=== PATIENT | male | born 1955 | race Caucasian/White ===

== ENCOUNTER 2017-05-04 09:38 | Emergency (ER) | payer SELFPAY ==
--- NOTE | 2017-05-04 09:48 | ED.PDOC ---
History of Present Illness - General Chief Complaint: Abdominal Pain Stated Complaint: right upper quadrant Time Seen by Provider: 05/04/17 09:45 Information Source: patient, RN notes reviewed, Vital Signs reviewed Exam Limitations: no limitations - History of Present Illness Initial Comments: Hector Brady 61 y/o male stated he started having sharp /stabbing right upper quadrant pain which comes and goes radiating to right side of mid back. Abdominal Pain Onset Location: RUQ Pain Radiation: back Quality: intermittent, sharpness Timing/Duration: 7-24 hours Improving Factors: other - ate barbecue and sausage last night Associated Symptoms: nausea/vomiting Review of Systems - Review of Systems Constitutional: States: no symptoms reported EENTM: States: no symptoms reported Respiratory: States: no symptoms reported Cardiology: States: no symptoms reported Gastrointestinal/Abdominal: States: see HPI Genitourinary: States: no symptoms reported Skin: States: no symptoms reported Neurological: States: no symptoms reported Endocrine: States: no symptoms reported Hematologic/Lymphatic: States: no symptoms reported Past Medical History (General) - Patient Medical History Hx Seizures: No Hx Stroke: No Hx Asthma: No Hx of COPD: No Hx Cardiac Disorders: No Hx Congestive Heart Failure: No Hx Pacemaker: No Hx Hypertension: No Hx Diabetes: No Hx MRSA: No Hx Other PMH: Yes - nephrolithiasis Surgical History: appendectomy - Social History Hx Alcohol Use: No Hx Substance Use: No Hx Physical Abuse: No Hx Emotional Abuse: No - Activities of Daily Living Patient Lives Alone: No - family Family Medical History - Family History Mother Living Status: Cause of : Colon Cancer Hx Family Hypertension: No Hx Family Stroke: No Hx Family Cancer: Yes - colon Physical Exam - Physical Exam General Appearance: Alert, Comfortable, No apparent distress Eyes, Ears, Nose, Throat Exam: PERRL/EOMI, normal ENT inspection, TMs normal, pharynx normal Neck: non-tender, full range of motion, supple, normal inspection Respiratory: chest non-tender, lungs clear, normal breath sounds, no respiratory distress Cardiovascular/Chest: normal peripheral pulses, regular rate, rhythm, no edema, no murmur Peripheral Pulses: No deficit Gastrointestinal/Abdominal: normal bowel sounds, soft, no organomegaly, no pulsatile mass, tenderness - right upper quadrant no peritoneal signs Progress - Progress Progress: 05/04/17 10:38 Vital Signs - 8 hr 05/04/17 09:47 Temperature 99.9 F H Pulse Rate [ 104 H Left Radial] Respiratory 16 Rate Blood Pressure 185/107 [Left Arm] O2 Sat by Pulse 95 Oximetry - Results/Orders Results/Orders: 05/04/17 09:50 Sodium Chloride 0.9% 1000ML [Ns 1000 ml] 1,000 ml IVS ONCE 05/04/17 10:00 CBC (AUTOMATED) W/AUTO DIFF Stat DIFFERENTIAL,MANUAL BY FLAGS Stat EKG STAT 05/04/17 10:36 Abdomen/Pelvis w/Contrast [CT] Stat 05/04/17 10:37 Hold Metformin x 48Hrs [id number] Laboratory Results - last 24 hr 05/04/17 05/04/17 05/04/17 10:00 10:00 10:05 WBC 6.5 RBC 4.04 L Hgb 13.9 L Hct 40.0 L MCV 99.0 H MCH 34.4 H MCHC 34.7 RDW 15.0 H Plt Count 151 MPV 6.7 L Absolute Neuts (auto) 1.60 L Absolute Lymphs (auto) 1.90 Absolute Monos (auto) 2.80 H Absolute Eos (auto) 0.00 Absolute Basos (auto) 0.10 Neutrophils % 25.1 L Lymphocytes % 29.8 Monocytes % 43.6 H Eosinophils % 0.6 L Basophils % 0.9 Sodium 137 Potassium 3.8 Chloride 104 Carbon Dioxide 24 Anion Gap 12.8 BUN 10 Creatinine 1.02 BUN/Creatinine Ratio 9.8 L Random Glucose 136 H Serum Osmolality 274.9 L Calcium 9.4 Total Bilirubin 0.9 AST 23 ALT 27 Alkaline Phosphatase 57 Serum Total Protein 7.3 Albumin 4.2 Globulin 3.1 Albumin/Globulin Ratio 1.4 Lipase 53 H Urine Color Yellow Urine Appearance Clear Urine pH 6.5 Ur Specific [place] 1.010 Urine Protein Negative Urine Glucose (UA) Negative Urine Ketones Negative Urine Blood Negative Urine Nitrite Negative Urine Bilirubin Negative Urine Urobilinogen 0.2 Ur Leukocyte Esterase Negative Urine RBC 0-1 Urine WBC 0 Ur Epithelial Cells 0-1 Amorphous Sediment 2+ Urine Bacteria 0 Urine Mucus Small - EKG/XRAY/CT EKG: Sinus Comments: heart rate 85;q wave lead3 only XRAY: chest - no acute abnormalities /radiologist CT Ordered: Yes - abd/pelvis-no acute intrabdominal abnomalities Departure - Departure Clinical Impression: Abdominal pain Qualifiers: Abdominal location: right upper quadrant Qualified Code(s): R10.11 - Right upper quadrant pain Time of Disposition: 11:26 Disposition: Discharge to Home or Self Care Condition: Fair Diet: low fat, low cholesterol, low salt diet Referrals: Blaine Waite MD [Primary Care Provider] - 1-2 Weeks Prescriptions: Acetaminophen W/ Codeine [Tylenol w/Codeine 300-30 mg] 1 tab PO Q6HRS #14 tab Hyoscyamine Sulfate [Levsin] 0.125 mg PO Q6HRS #10 tab Home Medications: Ambulatory Orders Acetaminophen W/ Codeine [Tylenol w/Codeine 300-30 mg] 1 tab PO Q6HRS #14 tab Esomeprazole Magnesium [Nexium] 40 mg PO DAILY 05/04/17 Hyoscyamine Sulfate [Levsin] 0.125 mg PO Q6HRS #10 tab 05/04/17 Additional Instructions: Follow up with primary as per verbal instr.uction
[2017-05-04] MEDS ORDERED: ONDANSETRON INJ 4 MG/2 ML VIAL IV ONE (09:50)
[2017-05-04] MEDS ORDERED: SODIUM CHLORIDE 0.9% 1000ML 1,000 ML IVS ONE (09:50)
[2017-05-04] MEDS ORDERED: MORPHINE SULFATE INJ 10 MG/ML VIAL IV ONE (10:14)
[2017-05-04] MEDS ORDERED: PROMETHAZINE HCL INJ 25 MG/ML VIAL IM ONE (10:15)
--- NOTE | 2017-05-04 10:19 | RAD ---
PROCEDURE: XR CHEST 1 VIEW HISTORY: pain COMPARISON: December 22, 2013 TECHNIQUE: Single projection of the chest was done. FINDINGS: The lung zarate are well inflated . There are no discrete airspace infiltrates, pneumothoraces or pleural effusions. The pulmonary vascularity is normal. The cardiomediastinal silhouette is unremarkable for patient's age and sex. IMPRESSION: There is no acute pleural-parenchymal process seen in the imaged lung zarate. Location of Interpretation: [facility]iology Electronically signed by: Kirby Qureshi MD 05/04/2017 10:19 AM CDT Workstation: [id number]
--- NOTE | 2017-05-04 11:17 | CT ---
PROCEDURE: Abdomen/Pelvis w/Contrast HISTORY: Abdominal pain Indication: Same as above Comparison: None . Technique: CT of the abdomen and pelvis was done with intravenous contrast. Images were obtained from the lung base to the level of the pubic symphysis in axial plane, followed by orthogonal sagittal and coronal reconstruction. Oral contrast was not given for the study. The patient was injected with contrast intravenously, without any documented immediate adverse reactions. This exam was performed according to our departmental dose-optimization program, which includes automated exposure control, adjustment of the mA and/or KV according to the patient's size and/or use of iterative reconstruction technique. FINDINGS: Images through the lung bases do not show any focal infiltrates or pleural effusions. There is a small hiatal hernia. Note is made of multiple subcentimeter nonobstructive bilateral renal calculi. The prostate is mildly enlarged. There is large bowel diverticulosis without acute diverticulitis The gallbladder, pancreas, spleen and the bilateral adrenal glands appear unremarkable. There is fatty metamorphosis of the liver without hepatomegaly. The urinary bladder is unremarkable . The bilateral ureters and the bilateral periureteral soft tissues and fat planes are unremarkable. The small bowel appears unremarkable, without any evidence of small bowel obstruction or bowel wall thickening. There is no CT evidence of pericecal inflammatory change or ileocecal mesenteric adenitis. The appendix is not visualized The ileocecal junction appears unremarkable. The splenic and portal veins are of normal caliber, without any filling defects. There is no pathological lymphadenopathy in the retroperitoneum or in the pelvic region. There is no evidence of free fluid or free air in the abdomen or the pelvic region. There is no clinically significant abdominal aortic aneurysm. There is a small fat-containing periumbilical ventral hernia defect. The visualized lumbar spine shows multilevel mild degenerative change . The paravertebral soft tissues are unremarkable. The remainder of the pelvic structures are unremarkable. IMPRESSION: There are no acute findings in the abdomen or the pelvis. There is a small hiatal hernia. Note is made of multiple subcentimeter nonobstructive bilateral renal calculi. The prostate is mildly enlarged. There is large bowel diverticulosis without acute diverticulitis. Location of Interpretation: Teleradiology Electronically signed by: Kirby Qureshi MD 05/04/2017 11:16 AM CDT Workstation: [id number]
[2017-05-04 11:43] VITALS: BP 126/84; TEMP 98.3; O2SAT 95
== END 2017-05-04 11:43 | disposition home or self-care (01) ==
LOC: ER 09:38
DX: R10.11 Right upper quadrant pain (principal); Z87.442 Personal history of urinary calculi; Z80.8 Family history of malignant neoplasm of other organs or systems
CPT/HCPCS: 36415; 71010; 74177; 80053; 81001; 83690; 85025; 93005; J2270; J2405; J2550; J7030

== ENCOUNTER 2017-05-15 14:28 | Emergency (ER) | payer SELFPAY ==
--- NOTE | 2017-05-15 15:24 | RAD ---
EXAM DESCRIPTION: Chest,1 View CLINICAL HISTORY: 61 years, Male, recent pna shortness breath COMPARISON: May 04 FINDINGS: Slightly shallow inspiration. Central bronchial thickening. Some increased density right infrahilar zone may be developing infiltrate. Borderline heart size. IMPRESSION: Central bronchial thickening suggests bronchitis. Question early infiltrate at the right base medially. Borderline heart size. Electronically signed by: Luís Whitley MD 05/15/2017 3:21 PM CDT
--- NOTE | 2017-05-15 15:49 | US ---
EXAM DESCRIPTION: Venous, lower Extremity LT CLINICAL HISTORY: pain COMPARISON: None Available. TECHNIQUE: Two -dimensional and doppler sonographic evaluation of the deep venous system of the left lower extremity. FINDINGS: Doppler evaluation shows normal color flow and normal phasicity and augmentation of the left common femoral vein, femoral vein, popliteal vein, greater saphenous vein, peroneal, and posterior tibial vein. The left lower extremity deep veins showed normal occlusion with transducer pressure. Two-dimensional survey showed no echogenic thrombus within these veins. IMPRESSION: 1. Duplex ultrasound evaluation of the left lower extremity deep venous system showing no evidence of thrombosis or embolism. Electronically signed by: Farhat Grewal MD 05/15/2017 3:48 PM CDT Workstation: [id number]
--- NOTE | 2017-05-15 16:05 | US ---
EXAM DESCRIPTION: Venous, upper Extremity RT CLINICAL HISTORY: pain COMPARISON: Duplex ultrasound evaluation of the left lower extremity deep venous system on the same visit. TECHNIQUE: Two -dimensional and doppler sonographic evaluation of the deep venous system of the right upper extremity. FINDINGS: Doppler evaluation shows normal color flow and normal phasicity and augmentation of the right subclavian, internal jugular, axillary, basilic, brachial, radial vein and ulnar vein. The left cephalic vein was not visualized. The right upper extremity deep veins showed normal occlusion with transducer pressure. Two-dimensional survey showed no echogenic thrombus within these veins. IMPRESSION: Duplex ultrasound evaluation of the right upper extremity deep venous system showing no deep venous thromboses. . Electronically signed by: Farhat Grewal MD 05/15/2017 4:03 PM CDT Workstation: [id number]
[2017-05-15] MEDS ORDERED: KETOROLAC TROMETHAMINE INJ 30 MG/ML VIAL IV ONE (16:06)
[2017-05-15 17:17] VITALS: TEMP 98.2
--- NOTE | 2017-05-15 17:48 | ED.PDOC ---
History of Present Illness - General Chief Complaint: General Stated Complaint: right arm pain,left calf pain Time Seen by Provider: 05/15/17 14:55 Source: patient Exam Limitations: no limitations - History of Present Illness Initial Comments: the patient is a 61-year-old male presenting to the emergency room secondary to arm and leg pain starting yesterday. The patient has just gotten out of the hospital a few days ago due to a pneumonia caused by influenza, H1N1 according to the patient. the patient did have an elevated d-dimer at that visit and apparently did have a CT angiogram of the chest that was negative. I have been unable to obtain the report of that study from the outside hospital. I haven't been able to obtain some of the lab work confirming the influenza. It also confirms the elevated d-dimer at that visit. The patient also has some significant monocytosis and x-rays confirmed a pneumonia. Total white blood cell count was apparently never elevated. He did have mild elevation of his amylase and lipase. His creatinine was also mildly elevated there as well. Interestingly as well his urobilinogen on his urinalysis there was mildly elevated. The patient was release from the hospital with oral clindamycin and Levaquin to follow up with pulmonology in 4 days. I do not see any positive bacterial cultures in the paperwork that I have received. I have not received imaging. I have not received the clinician's notes. Medical records has closed for the day so I'm unlikely to see the until tomorrow. On exam the patient has local pain over the left soleus muscle. He also has focal pain over the right deltoid and the right pronator quadratus muscle. There is no weakness. There is no sensory loss. He has no neurological deficits. Timing/Duration: 24 hours Severity: moderate Improving Factors: nothing Worsening Factors: immobilization Associated Symptoms: denies symptoms Allergies/Adverse Reactions: Allergies Penicillins Allergy (Verified 12/23/13 13:30) Home Medications: Ambulatory Orders Clindamycin HCl 300 mg PO Q6H 05/15/17 levoFLOXacin [Levaquin] 500 mg PO DAILY 05/15/17 Review of Systems - Review of Systems Constitutional: States: malaise, weakness - Generalized EENTM: States: no symptoms reported Respiratory: States: cough Cardiology: States: no symptoms reported Gastrointestinal/Abdominal: States: no symptoms reported Genitourinary: States: no symptoms reported Musculoskeletal: States: see HPI Skin: States: no symptoms reported Neurological: States: no symptoms reported Endocrine: States: no symptoms reported All other Systems: No Change from Baseline Past Medical History (General) - Patient Medical History Hx Seizures: No Hx Stroke: No Hx Dementia: No Hx Asthma: No Hx of COPD: No Hx Cardiac Disorders: No Hx Congestive Heart Failure: No Hx Pacemaker: No Hx Hypertension: No Hx Thyroid Disease: No Hx Diabetes: No Hx Gastroesophageal Reflux: Yes Hx Renal Disease: No Hx Cancer: No Hx of HIV: No Hx Hepatitis C: No Hx MRSA: No Surgical History: appendectomy - Vaccination History Hx Tetanus, Diphtheria Vaccination: Yes Hx Influenza Vaccination: Yes Hx Pneumococcal Vaccination: No - Social History Hx Tobacco Use: Yes Hx Alcohol Use: No Hx Substance Use: No Hx Substance Use Treatment: No Hx Depression: No Hx Physical Abuse: No Hx Emotional Abuse: No Family Medical History - Family History Mother Living Status: Cause of : Colon Cancer Hx Family Hypertension: No Hx Family Stroke: No Hx Family Cancer: Yes - colon Physical Exam - Physical Exam General Appearance: Alert, Comfortable, No apparent distress Eye Exam: bilateral normal Ears, Nose, Throat: hearing grossly normal, normal ENT inspection, normal pharynx Neck: non-tender, full range of motion, supple Respiratory: chest non-tender, no respiratory distress, no accessory muscle use , other - zia mild rales to the right midlung Cardiovascular/Chest: normal peripheral pulses, regular rate, rhythm, no edema Peripheral Pulses: radial,right: 2+, radial,left: 2+, dorsalis pedis,right: 2+, dorsalis pedis,left: 2+, posterior tibialis,right: 2+, posterior tibialis,left: 2+ Gastrointestinal/Abdominal: non tender, soft Rectal Exam: deferred Back Exam: normal inspection Extremity: normal range of motion, no pedal edema, normal capillary refill, other - see history of present illness. No palpable cords. Neurologic: legal office administrator II-XII nml as tested, no motor/sensory deficits, alert, normal mood/affect, oriented x 3 Skin Exam: normal color Comments: Vital Signs - 24 hr 05/15/17 05/15/17 05/15/17 14:43 16:03 17:16 Temperature 98.5 F 98.2 F Pulse Rate [ 105 H 90 75 Right Brachial] Respiratory 20 20 16 Rate Blood Pressure 140/85 140/85 133/91 [Right Arm] O2 Sat by Pulse 95 96 97 Oximetry Progress - Progress Progress: 05/15/17 17:55 the patient is a 61-year-old male who is just getting over a significant influenza causing bilateral pneumonia. The patient is presenting with focal right upper extremity and left lower extremity myalgias. Source of the myalgias and is uncertain. The patient received a liter of IV fluids here. Toradol helped somewhat. There is no elevation in muscle enzymes. D-dimer remains elevated as it did in [place]. Dopplers of the extremities are negative for any DVT here today. He apparently had a negative CT angiogram of the chest there. He is not having current significant shortness of breath or hypoxia. Viral infections such as influenza can certainly give focal myalgias as can medications such as fluoroquinolones. His civil defense director has contacted him and would like him to continue the Levaquin for now. If his myalgias get worse he is to hold this for a day or so until he sees his civil defense director again. I have not seen any bacterial cultures from the records that I have received indicating a specific target for this medication but again the records I have are incomplete. For now he can discontinue the clindamycin. The patient is having some posterior pharyngeal irritation likely from reflux from the medications. It is also possible he may be having some fungal esophagitis from them. He will receive 1 dose of oral Diflucan here today. Yeast were seen on his sputum culture from [place]. He can resume his Nexium but he does need to take it at a different time of day from his Levaquin. I do want him to see his primary care doctor as soon as possible and it would be good to have his imaging results at his primary care doctor's office from his hospital stay. He does need to have repeat blood work performed in 2 weeks and then again 6 weeks from now to make sure that the blood dyscrasias noted on his blood work has resolved. If it has not, then evaluation with hematology may be appropriate. Certainly significant viral infections can cause a lot of the changes seen. ER warnings are given for any significant worsening. - Results/Orders Results/Orders: 05/15/17 15:08 Telemetry .CONTINUOUS Laboratory Results - last 24 hr 0705/15/17 05/15/17 14:20 14:20 14:20 WBC 6.0 RBC 3.25 L Hgb 11.2 L Hct 31.8 L MCV 97.9 H MCH 34.4 H MCHC 35.2 RDW 15.0 H Plt Count 294 MPV 7.5 Absolute Neuts (auto) Not Reportable Absolute Lymphs (auto) Not Reportable Absolute Monos (auto) Not Reportable Absolute Eos (auto) Not Reportable Neutrophils % Not Reportable Neutrophils % (Manual) 34.0 Lymphocytes % Not Reportable Lymphocytes % (Manual) 22.0 Monocytes % Not Reportable Monocytes % (Manual) 42.0 Eosinophils % Not Reportable Basophils % Not Reportable Band Neutrophils 2.0 Hypochromia 1+ Platelet Estimate Normal Anisocytosis 1+ Microcytosis 1+ PT INR PTT (SP) D-Dimer, Quantitative Cancelled Sodium 132 L Potassium 3.6 Chloride 102 Carbon Dioxide 21 Anion Gap 12.6 BUN 8 Creatinine 0.68 BUN/Creatinine Ratio 11.8 Random Glucose 104 Serum Osmolality 263.2 L Calcium 8.0 L Magnesium 2.1 Total Bilirubin 1.1 H AST 42 ALT 42 Alkaline Phosphatase 77 Creatine Kinase 126 CK-MB (CK-2) 1.4 CK-MB (CK-2) % Not Reportable Troponin I 0.03 B-Natriuretic Peptide 36.0 Serum Total Protein 6.4 Albumin 2.4 L Globulin 4.0 H Albumin/Globulin Ratio 0.6 L TSH 0.82 05/15/17 14:20 WBC RBC Hgb Hct MCV MCH MCHC RDW Plt Count MPV Absolute Neuts (auto) Absolute Lymphs (auto) Absolute Monos (auto) Absolute Eos (auto) Neutrophils % Neutrophils % (Manual) Lymphocytes % Lymphocytes % (Manual) Monocytes % Monocytes % (Manual) Eosinophils % Basophils % Band Neutrophils Hypochromia Platelet Estimate Anisocytosis Microcytosis PT 14.8 H INR 1.310 PTT (SP) 28.7 D-Dimer, Quantitative 4152 H* Sodium Potassium Chloride Carbon Dioxide Anion Gap BUN Creatinine BUN/Creatinine Ratio Random Glucose Serum Osmolality Calcium Magnesium Total Bilirubin AST ALT Alkaline Phosphatase Creatine Kinase CK-MB (CK-2) CK-MB (CK-2) % Troponin I B-Natriuretic Peptide Serum Total Protein Albumin Globulin Albumin/Globulin Ratio TSH right upper extremity and left lower extremity venous ultrasounds are negative for any evidence of DVT. Chest x-ray shows resolving pneumoniaas would be appropriate for his history. Telemetry monitoring shows normal sinus rhythm. Departure - Departure Clinical Impression: Myalgia Disposition: Discharge to Home or Self Care Condition: Fair Departure Forms: ED Discharge - Pt. Copy, Patient Portal Self Enrollment Diet: regular diet Activity: increase activity as tolerated Referrals: Blaine Waite MD [Primary Care Provider] - 1-5 Days Home Medications: Ambulatory Orders Clindamycin HCl 300 mg PO Q6H 05/15/17 levoFLOXacin [Levaquin] 500 mg PO DAILY 05/15/17 Additional Instructions: the patient is a 61-year-old male who is just getting over a significant influenza causing bilateral pneumonia. The patient is presenting with focal right upper extremity and left lower extremity myalgias. Source of the myalgias and is uncertain. The patient received a liter of IV fluids here. Toradol helped somewhat. There is no elevation in muscle enzymes. D-dimer remains elevated as it did in [place]. Dopplers of the extremities are negative for any DVT here today. He apparently had a negative CT angiogram of the chest there. He is not having current significant shortness of breath or hypoxia. Viral infections such as influenza can certainly give focal myalgias as can medications such as fluoroquinolones. His civil defense director has contacted him and would like him to continue the Levaquin for now. If his myalgias get worse he is to hold this for a day or so until he sees his civil defense director again. I have not seen any bacterial cultures from the records that I have received indicating a specific target for this medication but again the records I have are incomplete. For now he can discontinue the clindamycin. The patient is having some posterior pharyngeal irritation likely from reflux from the medications. It is also possible he may be having some fungal esophagitis from them. He will receive 1 dose of oral Diflucan here today. Yeast were seen on his sputum culture from [facility]. He can resume his Nexium but he does need to take it at a different time of day from his Levaquin. I do want him to see his primary care doctor as soon as possible and it would be good to have his imaging results at his primary care doctor's office from his hospital stay. He does need to have repeat blood work performed in 2 weeks and then again 6 weeks from now to make sure that the blood dyscrasias noted on his blood work has resolved. If it has not, then evaluation with hematology may be appropriate. Certainly significant viral infections can cause a lot of the changes seen. ER warnings are given for any significant worsening.
[2017-05-15] MEDS ORDERED: FLUCONAZOLE 100 MG TAB PO ONE (18:02)
[2017-05-15 18:17] VITALS: BP 125/79; O2SAT 95
== END 2017-05-15 18:18 | disposition home or self-care (01) ==
LOC: ER 14:28
DX: M79.1 Myalgia (principal); K21.9 Gastro-esophageal reflux disease without esophagitis; Z87.01 Personal history of pneumonia (recurrent); Z88.0 Allergy status to penicillin; Z88.3 Allergy status to other anti-infective agents; Z87.891 Personal history of nicotine dependence
CPT/HCPCS: 36415; 71010; 80053; 82550; 82553; 83735; 83880; 84443; 84484; 85025; 85379; 85610; 85730; 93971; J1885

== ENCOUNTER 2019-04-15 15:35 | Outpatient (CLI) | payer SELFPAY ==
[2019-04-16] MEDS ORDERED: diphenhydrAMINE HCL 50 MG/ML VIAL IV ONE (08:00)
[2019-04-16] MEDS ORDERED: ACETAMINOPHEN 325 MG TAB PO ONE (08:00)
[2019-04-16] MEDS ORDERED: SODIUM CHLORIDE 0.9% 500ML 500 ML IVS PRN (08:00)
== END 2019-04-17 17:00 ==
LOC: INFRM 15:35
PROVIDERS: ATTEND Nurse Practitioner Family
DX: C95.90 Leukemia, unspecified not having achieved remission (principal)

== ENCOUNTER 2019-04-16 09:33 | Inpatient (IN) | payer OTHER ==
--- NOTE | 2019-04-16 09:54 | ED.PDOC ---
History of Present Illness - General Chief Complaint: Abdominal Pain Stated Complaint: vomiting,abdominal pain Time Seen by Provider: 04/16/19 09:48 Information Source: patient - History of Present Illness Initial Comments: THIS PATIENT WAS DISCHARGED FROM THE HOSPITAL IN [place] TWO DAYS AGO. HE HAS AML AND HAS FAILED RW CHEMOTHERAPY ROUNDS. LAST CHEMO WAS 5 WEEKS AGO. HE WAS SENT HOME FOR HOSPICE CARE. HE HAS HAD DIARRHEA ANC C-DIFF ENTEROCOLITIS. YESTERDAY HE STARTED WITH ABDOMINAL PAIN AND WITH SEVERE VOMITING AND DIARRHEA. DENIES ANY FEVER. EN ROUTE HE WAS GIVEN FENTANYL AND ZOFRAN. HE NOW FEELS MUCH BETTER. Abdominal Pain Onset Location: generalized abdomen Pain Radiation: no radiation Quality: severe Timing/Duration: 1 hour Improving Factors: nothing Worsening Factors: nothing Associated Symptoms: diarrhea, fatigue, nausea/vomiting, weakness Review of Systems - Review of Systems Constitutional: States: weakness EENTM: States: no symptoms reported Respiratory: States: no symptoms reported Cardiology: States: no symptoms reported Gastrointestinal/Abdominal: States: abdominal pain, diarrhea, vomiting Musculoskeletal: States: no symptoms reported Skin: States: rash, other - PETECHIAL RASH Endocrine: States: no symptoms reported Hematologic/Lymphatic: States: no symptoms reported Past Medical History (General) - Patient Medical History Hx Seizures: No Hx Stroke: No Hx Dementia: No Hx Asthma: No Hx of COPD: No Hx Cardiac Disorders: No Hx Congestive Heart Failure: No Hx Pacemaker: No Hx Hypertension: No Hx Thyroid Disease: No Hx Diabetes: No Hx Gastroesophageal Reflux: Yes Hx Renal Disease: No Hx Cancer: Yes - Leukemia AML Hx of HIV: No Hx Hepatitis C: No Hx MRSA: No Surgical History: appendectomy - Vaccination History Hx Tetanus, Diphtheria Vaccination: Yes Hx Influenza Vaccination: Yes Hx Pneumococcal Vaccination: No - Social History Hx Tobacco Use: Yes Hx Alcohol Use: No Hx Substance Use: No Hx Substance Use Treatment: No Hx Depression: No Hx Physical Abuse: No Hx Emotional Abuse: No Family Medical History - Family History Mother Living Status: Cause of : Colon Cancer Hx Family Hypertension: No Hx Family Stroke: No Hx Family Cancer: Yes - colon Physical Exam - Physical Exam General Appearance: Anxious, Ill Appearing Eyes, Ears, Nose, Throat Exam: PERRL/EOMI, pale conjunctivae (R), pale conjunctivae (L) Neck: non-tender, full range of motion, supple Respiratory: chest non-tender, lungs clear, normal breath sounds, no respiratory distress Cardiovascular/Chest: normal peripheral pulses, regular rate, rhythm, no edema, no gallop, no JVD Peripheral Pulses: No deficit Gastrointestinal/Abdominal: normal bowel sounds, soft, spleenomegaly Rectal Exam: deferred Back Exam: normal inspection Extremity: normal range of motion Skin Exam: rash - PETECHIAL RASH Lymphatic: no adenopathy Progress - Results/Orders Results/Orders: 04/16/19 09:50 Sodium Chloride 0.9% 1000ML [Ns 1000 ml] 1,000 ml IVS .QD URINALYSIS Stat Laboratory Results WBC 0.3 K/mm3 (4.8-10.8) L* 04/16/19 10:03 RBC 2.37 M/mm3 (4.70-6.10) L 04/16/19 10:03 Hgb 7.0 gm/dL (14.0-18.0) L* 04/16/19 10:03 Hct 19.4 % (42.0-52.0) L 04/16/19 10:03 MCV 82.1 fl (80.0-94.0) 04/16/19 10:03 MCH 29.7 pg (27.0-31.0) 04/16/19 10:03 MCHC 36.1 g/dL (33.0-37.0) 04/16/19 10:03 RDW 12.6 % (11.5-14.5) 04/16/19 10:03 Plt Count 9 K/mm3 (130-400) L* 04/16/19 10:03 MPV 7.3 fl (7.40-10.4) L 04/16/19 10:03 Absolute Neuts (auto) 0.00 K/uL (1.8-6.8) L 04/16/19 10:03 Absolute Lymphs (auto) 0.20 K/uL (1.0-3.4) L 04/16/19 10:03 Absolute Monos (auto) 0.00 K/uL (0.2-0.8) L 04/16/19 10:03 Absolute Eos (auto) 0.00 K/uL (0.0-0.4) 04/16/19 10:03 Absolute Basos (auto) 0.00 K/uL (0.0-0.1) 04/16/19 10:03 Neutrophils % 1.5 % (42.0-78.0) L 04/16/19 10:03 Lymphocytes % 80.9 % (20.0-50.0) H 04/16/19 10:03 Monocytes % 17.2 % (2.0-9.0) H 04/16/19 10:03 Eosinophils % 0.4 % (1.0-5.0) L 04/16/19 10:03 Basophils % 0.0 % (0.0-2.0) 04/16/19 10:03 Sodium 137 mmol/L (135-145) 04/16/19 10:03 Potassium 3.2 mmol/L (3.6-5.0) L 04/16/19 10:03 Chloride 111 mmol/L (101-111) 04/16/19 10:03 Carbon Dioxide 15 mmol/L (21-31) L 04/16/19 10:03 Anion Gap 14.2 (12-18) 04/16/19 10:03 BUN 40 mg/dL (7-18) H 04/16/19 10:03 Creatinine 1.13 mg/dL (0.6-1.3) 04/16/19 10:03 BUN/Creatinine Ratio 35.4 (10-20) H 04/16/19 10:03 Random Glucose 125 mg/dL (70-105) H 04/16/19 10:03 Serum Osmolality 285.1 mOsm/L (275-295) 04/16/19 10:03 Calcium 8.6 mg/dL (8.4-10.2) 04/16/19 10:03 Total Bilirubin 1.2 mg/dL (0.2-1.0) H 04/16/19 10:03 AST 14 IU/L (10-42) 04/16/19 10:03 ALT 18 IU/L (10-60) 04/16/19 10:03 Alkaline Phosphatase 108 IU/L (42-121) 04/16/19 10:03 Serum Total Protein 6.1 gm/dL (6.4-8.2) L 04/16/19 10:03 Albumin 2.6 g/dl (3.2-5.5) L 04/16/19 10:03 Globulin 3.5 gm/dL (2.3-3.5) 04/16/19 10:03 Albumin/Globulin Ratio 0.7 (1.1-1.9) L 04/16/19 10:03 CASE DISCUSSED WITH HALI SIMMONS-ADMIT Departure - Departure Clinical Impression: Thrombocytopenia Vomiting Qualifiers: Vomiting type: bilious vomiting Nausea presence: with nausea Qualified Code(s): R11.14 - Bilious vomiting AML (acute myeloblastic leukemia) Qualifiers: Leukemia Active/Remission status: without remission Qualified Code(s): C92.00 - Acute myeloblastic leukemia, not having achieved remission Leukopenia Qualifiers: Leukopenia type: unspecified Qualified Code(s): D72.819 - Decreased white blood cell count, unspecified Time of Disposition: 10:49 Disposition: Admit Patient Condition: Serious Home Medications: Ambulatory Orders levoFLOXacin [Levaquin] 750 mg PO DAILY 05/15/17 Fluconazole 200 mg PO DAILY 04/16/19 HYDROcodone 5MG/APAP 325MG [[place] 5/325] 1 tab PO PRN 04/16/19 LORazepam [Ativan] 0.5 mg PO TID PRN 04/16/19 Pantoprazole Sodium 40 mg PO DAILY 04/16/19 Valacyclovir HCl 1 gm PO DAILY 04/16/19 Decision To Admit - Decistion To Admit Decision to Admit Date: 04/16/19 Decision to Admit Time: 10:50
[2019-04-16] MEDS: SODIUM CHLORIDE 0.9% 1000ML 1,000 ML IVS PRN ×2 (10:32→14:09)
[2019-04-16] MEDS ORDERED: HYDROmorphone HCL INJ 2 MG/ML VIAL IV ONE (10:51)
[2019-04-16] MEDS ORDERED: ONDANSETRON INJ 4 MG/2 ML VIAL ONE (10:53)
[2019-04-16] MEDS ORDERED: ONDANSETRON INJ 4 MG/2 ML VIAL IV ONE (10:53)
--- NOTE | 2019-04-16 11:32 | HP ---
SUPERVISING PHYSICIAN: Eze Vazquez M.D. CHIEF COMPLAINT: Abdominal pain with nausea and vomiting. HISTORY OF PRESENT ILLNESS: This is as 63 year-old male patient who has an extensive history of acute myelogenous leukemia (AML). He was actually discharged from the hospital in [place] 2 days ago and has had 2 rounds of chemotherapy that has failed. He actually received blood in our hospital yesterday. His last round of chemo was about 5 weeks ago. He has declined further treatment and has decided to come to the hospital to control his symptoms and for hospice care. He came to the Emergency Room and was treated with some mild fluids and his nausea and vomiting symptoms were under control. He also was pain controlled. I was called for hospice admission. Some basic labs were done in the Emergency Room that showed a WBC of 0.3, RBC 2.37, hemoglobin 7, hematocrit 19.4, platelet count 9. Potassium 3.2, carbon dioxide 15, BUN 40. Bilirubin 1.2, serum protein 6.1, albumin 2.6. PAST MEDICAL HISTORY: 1. Acute myelogenous leukemia. 2. Gastroesophageal reflux disease. 3. Kidney stones. PAST SURGICAL HISTORY: 1. Appendectomy. CURRENT MEDICATIONS: 1. Fluconazole. 2. Hydrocodone. 3. Levaquin. 4. Lorazepam. 5. Protonix. 6. Valacyclovir. ALLERGIES: CLINDAMYCIN AND PENICILLIN. FAMILY HISTORY: Noncontributory. SOCIAL HISTORY: He is . He has 1 child. He has a history of cigarette smoking but quit 30 years ago. There is no ETOH or illicit drug use noted in history. REVIEW OF SYSTEMS: Negative except as per History of Present Illness. PHYSICAL EXAMINATION: VITAL SIGNS: Temperature 97.9, heart rate 104, blood pressure 123/85, respiratory rate 24, O2 saturation 99% on room air. GENERAL: This is a 63 year-old male patient who looks very ill. He is very anxious and somewhat tachypneic. HEENT: Pupils are equal and reactive. Conjunctiva left and right are both pale. NECK: Supple without mass. RESPIRATORY: Essentially clear to auscultation bilaterally. CARDIOVASCULAR: Regular rate and rhythm. GASTROINTESTINAL: Abdomen is soft. It is distended. Bowel sounds are positive. SKIN: He does have a petechial rash over his entire body. LABORATORY: Labs and films are as per the History of Present Illness. ASSESSMENT: 1. End stage acute myelogenous leukemia. 2. Pain related to #1. PLAN: Will admit the patient to the [facility]'s inpatient hospice care. Will put him on a [employer] pump of morphine for pain control. All other order with be per hospice. We will adjust those as needed. At this point we will give care and comfort measures and follow the patient as needed and treat as appropriate. #[id number] [facility]
[2019-04-16] MEDS ORDERED: fentaNYL CITRATE INJ 50 MCG/ML AMP IV PRN (12:30)
[2019-04-16] MEDS: HYDROmorphone PCA 0.2 MG/ML 1 BAG BAG IVPB SCH (14:09)
[2019-04-16] MEDS: ONDANSETRON INJ 4 MG/2 ML VIAL IV PRN (14:57)
[2019-04-16] MEDS ORDERED: SODIUM CHLORIDE 0.9% 50ML 50 ML ONE (15:32)
[2019-04-16] MEDS ORDERED: PROMETHAZINE HCL INJ 25 MG/ML VIAL ONE (15:32)
[2019-04-16] MEDS: PROMETHAZINE HCL INJ 25 MG in SODIUM CHLORIDE 0.9% 50ML 50 ML IVPB PRN (15:36)
[2019-04-17] MEDS: ONDANSETRON INJ 4 MG/2 ML VIAL IV PRN ×5 (03:57→21:50)
[2019-04-17] MEDS ORDERED: SODIUM CHLORIDE 0.9% (FLUSH) 10 ML SYG IV PRN (08:33)
[2019-04-17] MEDS: IV SET AND CAP CHANGE INJ INJ SCH (10:04)
[2019-04-17] MEDS ORDERED: PROMETHAZINE HCL INJ 25 MG/ML VIAL ONE ×2 (15:02→19:00)
[2019-04-17] MEDS ORDERED: SODIUM CHLORIDE 0.9% 50ML 50 ML ONE ×2 (15:02→19:00)
[2019-04-17] MEDS: PROMETHAZINE HCL INJ 25 MG in SODIUM CHLORIDE 0.9% 50ML 50 ML IVPB PRN ×2 (15:06→19:04)
[2019-04-17] MEDS: SODIUM CHLORIDE 0.9% 1000ML 1,000 ML IVS PRN (19:04)
[2019-04-18] MEDS: PROMETHAZINE HCL INJ 25 MG in SODIUM CHLORIDE 0.9% 50ML 50 ML IVPB PRN ×6 (00:04→23:25)
[2019-04-18] MEDS: ONDANSETRON INJ 4 MG/2 ML VIAL IV PRN ×3 (04:14→20:36)
[2019-04-18] MEDS ORDERED: PROMETHAZINE HCL INJ 25 MG/ML VIAL ONE ×6 (06:52→22:26)
[2019-04-18] MEDS ORDERED: SODIUM CHLORIDE 0.9% 50ML 50 ML ONE ×6 (06:52→22:26)
[2019-04-18] MEDS ORDERED: HYDROmorphone PCA 0.2 MG/ML 1 BAG BAG IVPB SCH (07:45)
[2019-04-18] MEDS ORDERED: SCOPOLAMINE PATCH 1.5MG 1 EA TD SCH (08:00)
[2019-04-18] MEDS ORDERED: HYDROmorphone PCA 0.2 MG/ML 1 BAG BAG IVPB ONE (14:19)
[2019-04-18] MEDS: HYDROmorphone PCA 0.2 MG/ML 1 BAG BAG IVPB SCH (14:24)
[2019-04-18] MEDS: SODIUM CHLORIDE 0.9% 1000ML 1,000 ML IVS PRN (19:35)
[2019-04-19] MEDS ORDERED: PROMETHAZINE HCL INJ 25 MG/ML VIAL ONE ×6 (03:06→23:03)
[2019-04-19] MEDS ORDERED: SODIUM CHLORIDE 0.9% 50ML 50 ML ONE ×6 (03:06→23:03)
[2019-04-19] MEDS: PROMETHAZINE HCL INJ 25 MG in SODIUM CHLORIDE 0.9% 50ML 50 ML IVPB PRN ×3 (03:21→11:59)
[2019-04-19] MEDS: ONDANSETRON INJ 4 MG/2 ML VIAL IV PRN (05:28)
[2019-04-19 06:40] VITALS: BP 93/63; O2SAT 98
[2019-04-19] MEDS: MORPHINE PCA 1 MG/ML 100 ML BAG IVPB SCH (10:09)
[2019-04-19] MEDS: PROMETHAZINE HCL INJ 25 MG in SODIUM CHLORIDE 0.9% 50ML 50 ML IVPB SCH ×3 (15:52→23:42)
[2019-04-20] MEDS ORDERED: SODIUM CHLORIDE 0.9% 50ML 50 ML ONE ×6 (03:35→23:01)
[2019-04-20] MEDS ORDERED: PROMETHAZINE HCL INJ 25 MG/ML VIAL ONE ×6 (03:35→23:01)
[2019-04-20] MEDS: PROMETHAZINE HCL INJ 25 MG in SODIUM CHLORIDE 0.9% 50ML 50 ML IVPB SCH ×6 (03:41→23:31)
[2019-04-20] MEDS: IV SET AND CAP CHANGE INJ INJ SCH (08:21)
[2019-04-20] MEDS: MORPHINE PCA 1 MG/ML 100 ML BAG IVPB SCH (14:13)
[2019-04-21] MEDS ORDERED: HYDROmorphone HCL INJ 2 MG/ML VIAL IV ONE (01:22)
[2019-04-21] MEDS: MORPHINE PCA 1 MG/ML 100 ML BAG IVPB SCH (01:36)
[2019-04-21 01:57] VITALS: TEMP 100.5
[2019-04-21] MEDS ORDERED: PROMETHAZINE HCL INJ 25 MG/ML VIAL ONE (04:00)
[2019-04-21] MEDS ORDERED: SODIUM CHLORIDE 0.9% 50ML 50 ML ONE (04:00)
[2019-04-21] MEDS: PROMETHAZINE HCL INJ 25 MG in SODIUM CHLORIDE 0.9% 50ML 50 ML IVPB SCH (04:05)
[2019-04-21] MEDS ORDERED: ACETAMINOPHEN SUPPOSITORY 650 MG PR ONE (05:22)
[2019-04-21] MEDS ORDERED: ACETAMINOPHEN SUPPOSITORY 650 MG PR PRN (05:24)
--- NOTE | 2019-04-21 09:56 | DS ---
SUPERVISING PHYSICIAN: Anahy Steen MD DISCHARGE SUMMARY/ SUMMARY DATE OF : 04/21/19 AT 06:52 AM ADMISSION DIAGNOSIS: 1. Endstage acute myelogenous leukemia. 2. Acute pain secondary to #1. DISCHARGE DIAGNOSIS: 1. Endstage acute myelogenous leukemia. 2. Acute pain secondary to #1. HOSPITAL COURSE: Mr. Brady is a 63-year-old male patient with an extensive history of AML and was on chemotherapy, but actually failed treatment, so he decided to utilize hospice care at that time. His pain at home became unbearable, so he was admitted for acute pain control under hospice care. He was admitted on 04/16/19. During his time here, he was treated by hospice with aggressive pain control and comfort measures. This morning, he at 06:52 with good pain control and family members at bedside. #[id number] [facility]
== END 2019-04-21 08:10 | disposition expired | DRG 948 ==
LOC: ER 09:33 → MS 11:15 → ER 11:16
PROVIDERS: ADMIT Nurse Practitioner Acute Care; ATTEND Nurse Practitioner
DX: G89.3 Neoplasm related pain (acute) (chronic) (principal); C92.00 Acute myeloblastic leukemia, not having achieved remission; K21.9 Gastro-esophageal reflux disease without esophagitis; Z51.5 Encounter for palliative care; Z66 Do not resuscitate; Z92.21 Personal history of antineoplastic chemotherapy; Z79.891 Long term (current) use of opiate analgesic; Z79.899 Other long term (current) drug therapy; Z88.0 Allergy status to penicillin; Z88.1 Allergy status to other antibiotic agents; Z87.891 Personal history of nicotine dependence